=== PATIENT | male | born 1990 | race American Indian/Alaskan Native ===

== ENCOUNTER 2021-05-15 12:06 | Emergency (ER) | payer MEDICARE ==
--- NOTE | 2021-05-15 13:01 | Event Note ---
ED Screening Note ED Screening Note: agitated no hi no si hallucinating and delusional paranoid charge nurse aware of need for bed This initial assessment/diagnostic orders/clinical plan/treatment(s) is/are subject to change based on patients health status, clinical progression and re- assessment by fellow clinical providers in the ED. Further treatment and workup at subsequent clinical providers discretion. Patient/guardian urged not to elope from the ED as their condition may be serious if not clinically assessed and managed. Initial orders include: mhe work up pt refused labs
[2021-05-15 13:44] LABS: Basophils % (Auto) 0.6 % (0.0-1.8); Eosinophils % (Auto) 0.4 % (0.0-4.3); Hematocrit 44.5 % (35.5-45.6); Hemoglobin 13.9 gm/dl (11.8-15.2); Lymphocytes # (Auto) 2.1 K/mm3 (1.2-5.4); Lymphocytes % (Auto) 47.9 % (13.4-35.0); Mean Corpuscular HGB Conc 31 % (32-34); Mean Corpuscular Volume 80 fl (84-94); Monocytes # (Auto) 0.3 K/mm3 (0.0-0.8); Monocytes % (Auto) 7.8 % (0.0-7.3); Platelet Count 203 K/mm3 (140-440); Red Blood Count 5.54 M/mm3 (3.65-5.03); Red Cell Distribution Width 14.7 % (13.2-15.2)
[2021-05-15 13:49] LABS: Alanine Aminotransferase 13 units/L (7-56); Albumin 5.1 g/dL (3.9-5); BUN/Creatinine Ratio 13; Blood Urea Nitrogen 13 mg/dL (9-20); Hemolysis Index 55
--- NOTE | 2021-05-15 17:17 | Emergency Department Report ---
HPI - General Chief Complaint: Psych - HPI HPI: 30-year-old male with history of schizophrenia who presents due to "they are telling me". When asked to explain, the patient says that he is being chased and that people are trying to kill him. He says "schizophrenia is people inside of my head who are whispering into my ears and trying to kill me" in addition to the auditory hallucinations, the patient denies visual hallucinations he also denies SI or HI. He denies any physical symptoms or complaints. He is not on his psych meds but cannot explain why. He is not vaccinated against COVID-19. He denies any associated headache, vision change, neck pain, chest pain, short ness of breath, abdominal pain, nausea/vomiting, cough, focal weakness, sensory changes, or any other complaints ED Past Medical Hx - Past Medical History Previous Medical History?: Yes Hx Psychiatric Treatment: Yes (schizo) - Social History Smoking Status: Current Every Day Smoker Substance Use Type: None - Medications Home Medications: Home Medications Medication Instructions Recorded Confirmed Last Taken Type Ciprofloxacin HCl 500 mg PO BID 10 Days #20 tablet 05/16/21 Unknown Rx ED Review of Systems ROS: Stated complaint: PSYCH EVAL Other details as noted in HPI Comment: All other systems reviewed and negative Constitutional: denies: chills, fever Eyes: denies: eye pain, vision change ENT: denies: throat pain, congestion Respiratory: denies: cough, shortness of breath Cardiovascular: denies: chest pain, palpitations Gastrointestinal: denies: abdominal pain, nausea, vomiting Genitourinary: denies: dysuria, frequency Musculoskeletal: denies: back pain, arthralgia Skin: denies: rash, lesions Neurological: denies: headache, weakness, numbness Psychiatric: auditory hallucinations. denies: visual hallucinations, homicidal thoughts, suicidal thoughts Physical Exam - Physical Exam Vital Signs: Vital Signs 05/15/21 12:36 Temperature 98.6 F Pulse Rate 138 H Respiratory 18 Rate Blood Pressure 129/69 [Right] O2 Sat by Pulse 99 Oximetry Physical Exam: GENERAL: Well developed and well nourished. No acute distress HEAD: Normocephalic. No obvious signs of trauma. ENT: Dry mucous membranes. EYES: Extraocular movements are intact. Pupils are equal round and reactive to light bilaterally NECK: Supple. Full ROM is intact. Trachea is midline. LUNGS: Nonlabored breathing. Equal chest rise bilaterally. Clear to auscultation bilaterally. CARDIOVASCULAR: Tachycardic in the 110s but with regular rhythm. No murmurs or rubs. VASCULAR: Cap refill < 2 seconds ABDOMEN: Abdomen is soft and nondistended. There is no significant tenderness, guarding or rebound. SKIN: Skin is warm and dry NEURO: Patient is awake, alert, and oriented. crate opener II-XII grossly intact. No focal deficits. Normal motor and sensory exam throughout. Normal speech. MUSCULOSKELETAL: No obvious deformities. No significant tenderness. Normal ROM throughout. BACK/SPINE: No midline tenderness or step-offs of the C/T/L spine. No costovertebral angle tenderness. ED Course Vital Signs 05/15/21 12:36 Temperature 98.6 F Pulse Rate 138 H Respiratory 18 Rate Blood Pressure 129/69 [Right] O2 Sat by Pulse 99 Oximetry ED Medical Decision Making - Lab Data Result diagrams: 05/15/21 13:18 05/15/21 13:18 - Medical Decision Making 30-year-old male with history of schizophrenia presenting with symptoms of acute psychosis with paranoid delusions and auditory hallucinations. No SI or HI. 1 013 order has been signed and initiated. We will send a full set of medical clearance labs. Patient noted to be tachycardic initial presentation he has dry mucous membranes and he has been encouraged to drink fluids. Labs have resulted and reveal no significant leukocytosis or anemia. Creatinine is within normal range and there are no significant electrolyte abnormalities. He is medically cleared for psychiatric evaluation placement as necessary. Critical care attestation.: If time is entered above; I have spent that time in minutes in the direct care of this critically ill patient, excluding procedure time. ED Disposition Clinical Impression: Acute psychosis, UTI (urinary tract infection) Disposition: [address] [place] [address] Is pt being admited?: No Condition: Stable Prescriptions: Ciprofloxacin HCl 500 mg PO BID 10 Days #20 tablet Referrals: PRIMARY CARE, [Primary Care Provider] - 3-5 Days
[2021-05-16 10:19] VITALS: BP 128/96
--- NOTE | 2021-05-16 11:21 | Event Note ---
Date: 05/16/21 Patient is 30 years old male admitted to the ER for mental health evaluation. Patient admitted with acute psychosis. Vital signs stable. Labs reviewed and is unremarkable however urine and UDS is still pending. Patient has been accepted to [facility].
--- NOTE | 2021-05-16 11:33 | Consultation ---
History of Present Illness - Reason for Consult Consult date: 05/16/21 Reason for consult: psychosis - History of Present Psychiatric Illness The patient was seen today. He is acutely psychotic. He has poor insight due to the psychosis. The patient is speaking nonsensibly. He says voices are telling him that they are going to kill him. He says "it's people everywhere. They are pulling me out of my body." He then says "they broke my conscious." The patient says people are beating him up. He says "look, they are all over." He denies SI/HI. He says "but they are going to kill me." The patient says the "people want leave me alone. They won't let me sleep." PAST PSYCHIATRIC HISTORY Diagnoses: Schizophrenia Suicide attempts or Self-harm behavior: Denies Prior psychiatric hospitalizations: Yes Substance Abuse history: Denies Previous psychiatric medications tried: unable to recall Outpatient treatment: Unknown PAST MEDICAL HISTORY: None reported Family Psychiatric History: None reported or documented SOCIAL HISTORY Marital Status: Single Living Arrangements: with mom Employment Status: Disabled Access to guns/weapons: Unknown Education: Unknown History of Abuse: Denies Legal History: none REVIEW OF SYSTEMS Constitutional: Negative for weight loss ENT: Negative for stridor Respiratory: Negative for cough or hemoptysis All other systems reviewed and are negative MENTAL STATUS EXAMINATION General Appearance and Behavior: Age appropriate, not wearing appropriate clothes, fair eye contact Cooperation: Engaged Psychomotor Behavior: Psychomotor normal Mood: okay Affect and affective range: congruent to stated mood Thought Process: illogical Thought Content: delusions, hallucinations Speech: Normal tone and pace Suicidal Ideation: Denies Homicidal Ideation: Denies Hallucinations: Yes, A/V Delusions: yes, paranoia Insight and Judgment: poor insight and judgment Memory: impaired Attention: divided attention impaired Orientation: Alert, oriented Assessment: Schizophrenia Treatment Plan 1013 Risperidone 0.5mg po BID Trazodone 50mg po qhs Risks, benefits and alternatives of medications discussed with the patient, questions answered and consent obtained from patient. PSYCHOTHERAPY: Supportive psychotherapy provided MEDICAL: Per primary team DELIRIUM PRECAUTIONS: Please re-orient patient frequently, keep lights on during the day, and minimize benzodiazepines and opiates as these medications could worsen patient's confusion. LEAD EMBEDDED SOFTWARE ENGINEER: per primary DISPOSITION: Recommend acute psychiatric treatment. Will follow. Thank you for the consult. Please contact with any questions and/or concerns. Case discussed with Dr. Bae who agrees with current disposition Medications and Allergies Allergies Allergy/AdvReac Type Severity Reaction Status Date / Time No Known Allergies Allergy Verified 08/11/18 19:28 Home Medications Medication Instructions Recorded Confirmed Last Taken Type No Known Home Medications [No 08/11/18 05/16/21 Unknown History Reported Home Medications] Mental Status Exam - Vital signs Last Vital Signs Temp 96.2 F L 05/16/21 10:16 Pulse 78 05/16/21 10:16 Resp 18 05/16/21 10:16 BP 128/96 05/16/21 10:16 Pulse Ox 96 05/16/21 10:16 Results Result Diagrams: 05/15/21 13:18 05/15/21 13:18 Abnormal lab results 05/15/21 05/15/21 05/15/21 Range/Units 13:18 13:18 13:18 WBC 4.3 L (4.5-11.0) K/mm3 RBC 5.54 H (3.65-5.03) M/mm3 MCV 80 L (84-94) fl MCH 25 L (28-32) pg MCHC 31 L (32-34) % Lymph % (Auto) 47.9 H (13.4-35.0) % [place] % (Auto) 7.8 H (0.0-7.3) % Glucose 104 H (75-100) mg/dL Albumin 5.1 H (3.9-5) g/dL Salicylates < 0.3 L (2.8-20.0) mg/dL Acetaminophen (10.0-30.0) ug/mL 05/15/21 Range/Units 13:18 WBC (4.5-11.0) K/mm3 RBC (3.65-5.03) M/mm3 MCV (84-94) fl MCH (28-32) pg MCHC (32-34) % Lymph % (Auto) (13.4-35.0) % [place] % (Auto) (0.0-7.3) % Glucose (75-100) mg/dL Albumin (3.9-5) g/dL Salicylates (2.8-20.0) mg/dL Acetaminophen 5.0 L (10.0-30.0) ug/mL All other labs normal.
[2021-05-16] MEDS ORDERED: risperiDONE 0.25 MG TAB PO SCH (12:00)
[2021-05-16 13:59] LABS: Bilirubin,Urine NEG (Negative); Blood,Urine NEG (Negative); Color,Urine Yellow (Yellow); Mucus,Urine 2+ /HPF
[2021-05-16] MEDS ORDERED: levoFLOXacin 500 MG TAB PO ONE (14:14)
[2021-05-16] MEDS ORDERED: traZODone 50 MG TAB PO SCH (22:00)
== END 2021-05-16 15:32 ==
LOC: ED 12:06
DX: F23 Brief psychotic disorder (principal); N39.0 Urinary tract infection, site not specified; Z20.822 Contact with and (suspected) exposure to COVID-19; F17.200 Nicotine dependence, unspecified, uncomplicated
CPT/HCPCS: 36415; 80053; 81001; 85025; 87086; 99285; U0003; 80320; G0480

== ENCOUNTER 2021-08-20 13:29 | Emergency (ER) | payer MEDICARE ==
[2021-08-20] MEDS ORDERED: ZIPRASIDONE MESYLATE 20 MG VIAL IM ONE (14:57)
[2021-08-20] MEDS ORDERED: WATER FOR INJ Sterile (PF) 10 ML ONE (15:01)
[2021-08-20 15:45] LABS: Basophils % (Auto) 0.6 % (0.0-1.8); Eosinophils % (Auto) 0.1 % (0.0-4.3); Hematocrit 44.3 % (35.5-45.6); Hemoglobin 14.5 gm/dl (11.8-15.2); Lymphocytes # (Auto) 1.3 K/mm3 (1.2-5.4); Lymphocytes % (Auto) 28.5 % (13.4-35.0); Mean Corpuscular HGB Conc 33 % (32-34); Mean Corpuscular Volume 79 fl (84-94); Monocytes # (Auto) 0.3 K/mm3 (0.0-0.8); Monocytes % (Auto) 6.3 % (0.0-7.3); Platelet Count 189 K/mm3 (140-440); Red Blood Count 5.59 M/mm3 (3.65-5.03); Red Cell Distribution Width 14.8 % (13.2-15.2)
[2021-08-20 16:27] LABS: BUN/Creatinine Ratio 10; Blood Urea Nitrogen 10 mg/dL (9-20); Calcium 9.5 mg/dL (8.4-10.2); Hemolysis Index 14
--- NOTE | 2021-08-20 19:28 | Emergency Department Report ---
ED Psych HPI - General Chief Complaint: Psych Stated Complaint: BEING PULLED OUT BODY Time Seen by Provider: 08/20/21 14:39 Source: patient Mode of arrival: Ambulatory - History of Present Illness Initial Comments: Patient is a 30-year-old male presenting to ED with complaint of an out of body experience for the past few days. Patient states that invisible people are pulling his conscience out of his body. States he can see them tearing his body apart and killing him. He denies any SI or HI. - Related Data Previous Rx's Medication Instructions Recorded Last Taken Type Ciprofloxacin HCl 500 mg PO BID 10 Days #20 tablet 05/16/21 Unknown Rx Allergies Allergy/AdvReac Type Severity Reaction Status Date / Time No Known Allergies Allergy Verified 08/11/18 19:28 ED Review of Systems ROS: Stated complaint: BEING PULLED OUT BODY Other details as noted in HPI Comment: All other systems reviewed and negative Constitutional: denies: chills, fever Respiratory: denies: cough, shortness of breath, wheezing Cardiovascular: denies: chest pain, palpitations Gastrointestinal: denies: abdominal pain, nausea, diarrhea Musculoskeletal: denies: back pain, joint swelling, arthralgia Skin: denies: rash, lesions Neurological: denies: headache, weakness, paresthesias Psychiatric: visual hallucinations ED Past Medical Hx - Past Medical History Previous Medical History?: Yes Hx Psychiatric Treatment: Yes (schizo) - Surgical History Past Surgical History?: No - Social History Smoking Status: Current Every Day Smoker Substance Use Type: None - Medications Home Medications: Home Medications Medication Instructions Recorded Confirmed Last Taken Type Ciprofloxacin HCl 500 mg PO BID 10 Days #20 tablet 05/16/21 Unknown Rx ED Physical Exam - General Limitations: No Limitations General appearance: alert, in no apparent distress - Head Head exam: Present: atraumatic, normocephalic - Respiratory Respiratory exam: Present: normal lung sounds bilaterally. Absent: respiratory distress - Cardiovascular Cardiovascular Exam: Present: regular rate, normal rhythm, normal heart sounds - GI/Abdominal GI/Abdominal exam: Present: soft. Absent: distended, tenderness - Neurological Exam Neurological exam: Present: alert, oriented X3, CN II-XII intact - Psychiatric Psychiatric exam: Present: flat affect. Absent: homicidal ideation, suicidal ideation - Skin Skin exam: Present: warm, dry, intact, normal color ED Course Vital Signs 08/20/21 08/20/21 14:03 19:07 Temperature 97.6 F 97.8 F Pulse Rate 93 H 86 Respiratory 16 18 Rate Blood Pressure 107/58 Blood Pressure 131/79 [Left] O2 Sat by Pulse 97 100 Oximetry ED Medical Decision Making - Lab Data Result diagrams: 08/20/21 15:04 08/20/21 15:04 - Medical Decision Making Laboratory evaluation unremarkable except for talk screen positive for THC. Patient medically cleared. 1013 on file. Awaiting mental health assessment and placement. Critical care attestation.: If time is entered above; I have spent that time in minutes in the direct care of this critically ill patient, excluding procedure time. ED Disposition Clinical Impression: Acute psychosis, Visual hallucinations Disposition: [address] [place] [address] Is pt being admited?: Yes Condition: Stable Referrals: BRIDGER ROGERS MD [Primary Care Provider] - 3-5 Days
[2021-08-20 23:03] LABS: Bilirubin,Urine NEG (Negative); Blood,Urine NEG (Negative); Color,Urine Amber (Yellow); Mucus,Urine 3+ /HPF
[2021-08-20 23:10] LABS: Amphetamine Screen,Urine Negative; Benzodiazepines Screen,Urine Negative; Cocaine Screen,Urine Negative; Methadone Screen,Urine Negative; Opiate Screen,Urine Negative
[2021-08-20 23:23] LABS: Cannabinoid Screen,Urine Positive
--- NOTE | 2021-08-21 11:00 | Consultation ---
History of Present Illness - Reason for Consult Consult date: 08/21/21 Reason for consult: psychosis - History of Present Psychiatric Illness HPI: Patient is a 30-year-old male presenting to ED with complaint of an out of body experience for the past few days. Patient states that invisible people are pulling his conscience out of his body. States he can see them tearing his body apart and killing him. He denies any SI or HI. The patient was seen today. He is acutely psychotic. The patient is delusional and hallucinating. He reports feeling depressed sometimes. He says things are crawling inside of him and he can feel them. He says they are behind him talking. The patient says "they are trying to kill me. They already broke my neck." The says "they are trying to pull my consciousness from my body." The patient denies SI/HI. He also denies any illicit drug use outside of [facility]. He says he has a history of schizophrenia and takes risperidone and lorazepam. Will start medications and recommend inpatient treatment. Please see plan below. PAST PSYCHIATRIC HISTORY: Diagnoses: Schizophrenia Suicide attempts or Self-harm behavior: Denies Prior psychiatric hospitalizations: Yes Substance Abuse history: THC Previous psychiatric medications tried: Risperidone, Lorazepam Outpatient treatment: Yes PAST MEDICAL HISTORY: None reported or document Family Psychiatric History: None reported or documented SOCIAL HISTORY Marital Status: Single Living Arrangements: With mom Employment Status: Unemployed Access to guns/weapons: Denies Education: high school grad History of Abuse: Denies Legal History: Denies REVIEW OF SYSTEMS Constitutional: Negative for weight loss ENT: Negative for stridor Respiratory: Negative for cough or hemoptysis All other systems reviewed and are negative MENTAL STATUS EXAMINATION General Appearance and Behavior: Age appropriate, wearing appropriate clothes, cooperative, polite with questioning, fair eye contact Cooperation: cooperative Psychomotor Behavior: Psychomotor normal Mood: depressed Affect and affective range: Congruent with stated mood Thought Process: illogical Thought Content: hallucinations Speech: Normal volume, Regular rate and rhythm Suicidal Ideation: Denies Homicidal Ideation: Denies Hallucination: Auditory/Tactile Delusions: Yes Impulse Control: Limited Insight and Judgment: Poor Memory: limited Attention: distracted Orientation: Alert and oriented Diagnoses: Schizophrenia Treatment Plan 1013 Doxepin 10mg po qhs Risperidone 0.5mg po BID Klonopin 0.25mg po BID x 3 days Prozac 10mg po daily PSYCHOTHERAPY: Supportive psychotherapy provided MEDICAL: Per primary team DELIRIUM PRECAUTIONS: Please re-orient patient frequently, keep lights on during the day, and minimize benzodiazepines and opiates as these medications could worsen patient's confusion. LICENSED SOCIAL WORKER: Per medical team DISPOSITION: Recommend acute psychiatric inpatient treatment Will follow. Thank you for the consult. Case staffed with Dr. Bae Medications and Allergies Allergies Allergy/AdvReac Type Severity Reaction Status Date / Time No Known Allergies Allergy Verified 08/11/18 19:28 Home Medications Medication Instructions Recorded Confirmed Last Taken Type Ciprofloxacin HCl 500 mg PO BID 10 Days #20 tablet 05/16/21 Unknown Rx Mental Status Exam - Vital signs Last Vital Signs Temp 97.8 F 08/20/21 19:07 Pulse 86 08/20/21 19:07 Resp 18 08/20/21 19:07 BP 107/58 08/20/21 19:07 Pulse Ox 100 08/20/21 19:07 Results Result Diagrams: 08/20/21 15:04 08/20/21 15:04 Abnormal lab results 08/20/21 08/20/21 08/20/21 Range/Units 15:04 15:04 15:04 RBC 5.59 H (3.65-5.03) M/mm3 MCV 79 L (84-94) fl MCH 26 L (28-32) pg Carbon Dioxide 20 L (22-30) mmol/L Ur Specific [place] (1.003-1.030) Salicylates < 0.3 L (2.8-20.0) mg/dL Acetaminophen (10.0-30.0) ug/mL 08/20/21 08/20/21 Range/Units 15:04 22:33 RBC (3.65-5.03) M/mm3 MCV (84-94) fl MCH (28-32) pg Carbon Dioxide (22-30) mmol/L Ur Specific [place] 1.038 H (1.003-1.030) Salicylates (2.8-20.0) mg/dL Acetaminophen 5.0 L (10.0-30.0) ug/mL All other labs normal.
[2021-08-21] MEDS ORDERED: FLUoxetine 10 MG TAB PO SCH (12:00)
[2021-08-21] MEDS ORDERED: clonazePAM 0.5 MG TAB PO SCH (12:00)
[2021-08-21] MEDS ORDERED: risperiDONE 0.25 MG TAB PO SCH (12:00)
[2021-08-21 12:29] VITALS: BP 113/68
[2021-08-21] MEDS ORDERED: DOXEPIN 10 MG CAP PO SCH (22:00)
== END 2021-08-21 16:34 ==
LOC: ED 13:29
DX: F23 Brief psychotic disorder (principal); F17.200 Nicotine dependence, unspecified, uncomplicated; Z20.822 Contact with and (suspected) exposure to COVID-19
CPT/HCPCS: 36415; 80048; 80307; 81001; 85025; 96372; 99285; J3486; U0003; 80320; G0480